=== PATIENT | female | born 1985 | race Caucasian/White ===

== ENCOUNTER 2016-11-30 12:50 | Emergency (ER) | payer MEDICAID | END 2016-11-30 14:45 | disposition home or self-care (01) | LOC: D.ER 12:50 | DX: J20.9 Acute bronchitis, unspecified (principal); J06.9 Acute upper respiratory infection, unspecified; G43.909 Migraine, unspecified, not intractable, without status migrainosus; F17.200 Nicotine dependence, unspecified, uncomplicated ==

== ENCOUNTER 2017-02-13 16:19 | Emergency (ER) | payer MEDICAID ==
[2017-02-13 16:59] LABS: BASOPHILS 0.1 % (0-2); EOSINOPHILS 1.1 % (0-7); HEMATOCRIT 43.2 % (36.0-48.0); HEMOGLOBIN 14.8 g/dL (12-16); IMMATURE GRANULOCYTES 0.3 % (0-5); LYMPHOCYTES 17.1 % (15-50); MCH 31.4 pg (26.0-34.0); MCHC 34.3 g/dL (31.0-37.0); MCV 91.5 fL (80.0-100.0); MEAN PLATELET VOLUME 9.7 fL (7.4-10.4); MONOCYTES 3.8 % (2-11); NEUTROPHILS 77.6 % (40-80); PLATELET COUNT 311 10x3/uL (130-400); RBC 4.72 10x6/uL (4.00-5.40); RDW 12.6 % (11.5-14.5); WBC 14.2 10x3/uL (4.8-10.8)
[2017-02-13 17:11] LABS: APPEARANCE CLEAR (CLEAR); COLOR YELLOW (YELLOW)
[2017-02-13 17:12] LABS: BACTERIA FEW /hpf (NONE SEEN); BILIRUBIN NEGATIVE (NEGATIVE); EPITHELIAL CELLS 0-5 /hpf (0-5); GLUCOSE NEGATIVE (NEGATIVE); KETONE NEGATIVE (NEGATIVE); LEUKOCYTE ESTERASE TRACE (NEGATIVE); NITRITE NEGATIVE (NEGATIVE); PROTEIN NEGATIVE (NEGATIVE); RED CELLS - URINE >50 /hpf (0-5); UROBILINOGEN NORMAL (NORMAL); WHITE CELLS - URINE 0-5 /hpf (0-5)
[2017-02-13 17:16] LABS: HCG SERUM NEGATIVE (NEGATIVE)
[2017-02-13 17:20] LABS: ALBUMIN 3.9 g/dL (3.4-5.0); ANION GAP 16.9 mmol/L (8-16); BILIRUBIN - TOTAL 0.29 mg/dL (0.2-1.3); CALCIUM 9.1 mg/dL (8.5-10.1); CARBON DIOXIDE 24.1 mmol/L (21.0-32.0); PROTEIN - SERUM 7.2 g/dL (6.4-8.2)
== END 2017-02-13 21:21 | disposition home or self-care (01) ==
LOC: D.ER 16:19
PROVIDERS: Emergency Medicine
DX: R10.9 Unspecified abdominal pain (principal); R11.2 Nausea with vomiting, unspecified; R55 Syncope and collapse; F17.200 Nicotine dependence, unspecified, uncomplicated

== ENCOUNTER 2017-04-05 15:14 | Emergency (ER) | payer MEDICAID | END 2017-04-05 17:50 | disposition home or self-care (01) | LOC: D.ER 15:14 | DX: S61.451A Open bite of right hand, initial encounter (principal); S51.851A Open bite of right forearm, initial encounter; W54.0XXA Bitten by dog, initial encounter; Y93.89 Activity, other specified; Y92.027 Garden or yard of mobile home as the place of occurrence of the external cause; S60.812A Abrasion of left wrist, initial encounter; S61.213A Laceration without foreign body of left middle finger without damage to nail, initial encounter ==

== ENCOUNTER 2017-04-07 10:27 | Day surgery (SDC) | payer MEDICAID ==
[2017-04-07 13:06] LABS: BASOPHILS 0.2 % (0-2); EOSINOPHILS 1.3 % (0-7); HEMOGLOBIN 15.8 g/dL (12-16); IMMATURE GRANULOCYTES 0.3 % (0-5); LYMPHOCYTES 21.8 % (15-50); MCH 31.3 pg (26.0-34.0); MCHC 34.3 g/dL (31.0-37.0); MCV 91.3 fL (80.0-100.0); MEAN PLATELET VOLUME 9.6 fL (7.4-10.4); MONOCYTES 5.2 % (2-11); NEUTROPHILS 71.2 % (40-80); PLATELET COUNT 348 10x3/uL (130-400); RBC 5.04 10x6/uL (4.00-5.40); RDW 12.3 % (11.5-14.5); WBC 13.8 10x3/uL (4.8-10.8)
[2017-04-07 13:19] LABS: ALBUMIN 4.5 g/dL (3.4-5.0); ANION GAP 15.4 mmol/L (8-16); BILIRUBIN - TOTAL 0.66 mg/dL (0.2-1.3); CALCIUM 9.9 mg/dL (8.5-10.1); CARBON DIOXIDE 27.5 mmol/L (21.0-32.0); HCG SERUM NEGATIVE (NEGATIVE); POTASSIUM - SERUM 3.9 mmol/L (3.5-5.1); PROTEIN - SERUM 8.7 g/dL (6.4-8.2)
[2017-04-07 15:05] VITALS: BP 107/66
--- NOTE | 2017-04-07 15:09 | NUR ---
PT REMAINED ON STRETCHER FOR PROCEDURE
--- NOTE | 2017-04-07 15:10 | NUR ---
RECEIVED TO ROOM 2210. FAMILY IN ROOM. SECOND FINGER TO LEFT HAND SLIGHTLY SWOLLEN BUT BLANCHES WELL. C/O SOME PAIN TO THIS FINGER. WILL MONITOR.
--- NOTE | 2017-04-07 15:30 | NUR ---
UP TO BR WITH FAMILYS ASSIST. VOIDED 300CC CLEAR YELLOW URINE. SKIN CARE PER SELF.
[2017-04-07 15:52] VITALS: BP 107/66; BMI 29.9
--- NOTE | 2017-04-07 16:16 | NUR ---
DRINKING WATER WITHOUT NAUSEA. DISCHARGED TO HOME AMBULATORY WITH FAMILY. DISCHARGE INSTRUCTIONS GIVEN BOTH VERBALLY AND WRITTEN. ALL QUESTIONS ANSWERED. PATIENT AND FAMILY VERBALIZED UNDERSTANDING OF SAME. NO NEW PRESCRIPTIONS NEEDS. ALL BELONGINGS WITH PATIENT.
--- NOTE | 2017-04-12 13:19 | OP ---
PATIENT NAME: MAGUE CASILLAS MEDICAL RECORD: [id number] :87 LOCATION:[facility] ADMISSION DATE: SURGEON: BARON BOUCHER MD DATE OF OPERATION: 04/07/2017 DATE OF OPERATION: 04/07/17 PREOPERATIVE DIAGNOSIS: Retained ring, left hand long finger. POSTOPERATIVE DIAGNOSIS: Retained ring, left hand long finger. PROCEDURE: Removal of ring under TIVA anesthesia. ANESTHESIA: TIVA. INDICATIONS: Ms. Casillas evidently had come in with a dog bite on this finger and the ring was not removed at the time of suturing, the dog bite closed. She returned back to the ER, where the ER had tried multiple attempts at removing the ring and could not. I was called in to have this done. Although, the [employer] was ready, we were able to get it off with a simple ring cutter. OPERATIVE SUMMARY IN DETAIL: After obtaining the appropriate preoperative orthopedic surgery consent as well as anesthetic consultation, evaluation and clearance, the patient was brought to the operating room and placed on the operating table in supine position. After general TIVA anesthesia was administered, the area about the hand was prepped and draped in a routine sterile fashion. A ring cutter was brought in and with usual force the ring was cut on both sides and removed. Immediate jewish and decreased swelling of the finger was noted. The patient was awakened and taken to recovery room in stable condition. TRANSINT:[id number] Voice Confirmation ID: [id number] DOCUMENT ID: [id number] BARON BOUCHER MD at 1319 CC: [id number] DICTATION DATE: 04/08/17 1016 [employer] SPECIALIST: 04/08/17 1150 [facility] 04/07/17 [id number] [place] [address]
== END 2017-04-07 16:18 | disposition home or self-care (01) ==
LOC: D.OPS 10:27 → D.ER 10:27 → D.MS 13:55 → EDSTATUS 14:00 → D.OPS 16:18
PROVIDERS: Physician Assistant
DX: S60.443A External constriction of left middle finger, initial encounter (principal); F17.200 Nicotine dependence, unspecified, uncomplicated; Z01.812 Encounter for preprocedural laboratory examination; W49.04XA Ring or other jewelry causing external constriction, initial encounter

== ENCOUNTER 2017-04-15 12:13 | Emergency (ER) | payer MEDICAID | END 2017-04-15 12:15 | disposition home or self-care (01) | LOC: D.ER 12:13 | DX: Z02.9 Encounter for administrative examinations, unspecified (principal) ==

== ENCOUNTER 2017-09-09 23:16 | Emergency (ER) | payer MEDICAID | END 2017-09-10 00:01 | disposition home or self-care (01) | LOC: D.ER 23:16 | DX: M54.5 Low back pain (principal); F17.200 Nicotine dependence, unspecified, uncomplicated ==

== ENCOUNTER 2017-10-05 06:16 | Emergency (ER) | payer MEDICAID ==
[2017-10-05 06:39] LABS: BASOPHILS 0.3 % (0-2); EOSINOPHILS 3.3 % (0-7); HEMATOCRIT 39.7 % (36.0-48.0); HEMOGLOBIN 13.6 g/dL (12-16); IMMATURE GRANULOCYTES 0.1 % (0-5); LYMPHOCYTES 37.3 % (15-50); MCH 31.3 pg (26.0-34.0); MCHC 34.3 g/dL (31.0-37.0); MCV 91.5 fL (80.0-100.0); MEAN PLATELET VOLUME 9.3 fL (7.4-10.4); MONOCYTES 4.3 % (2-11); NEUTROPHILS 54.7 % (40-80); PLATELET COUNT 281 10x3/uL (130-400); RBC 4.34 10x6/uL (4.00-5.40); RDW 12.6 % (11.5-14.5); WBC 10.3 10x3/uL (4.8-10.8)
[2017-10-05 06:55] LABS: ALBUMIN 3.5 g/dL (3.4-5.0); ALKALINE PHOSPHATASE 67 U/L (46-116); ALT (SGPT) 19 U/L (10-68); CALC OSMOLALITY 280 mosm/kg (275-300); CALCIUM 8.5 mg/dL (8.5-10.1); CARBON DIOXIDE 21.8 mmol/L (21.0-32.0); CHLORIDE - SERUM 105 mmol/L (98-107); CREATININE - SERUM 0.9 mg/dL (0.6-1.3); LIPASE 121 U/L (73-393); POTASSIUM - SERUM 3.6 mmol/L (3.5-5.1); PROTEIN - SERUM 6.9 g/dL (6.4-8.2); SODIUM 139 mmol/L (136-145); UREA NITROGEN 13 mg/dL (7-18); eGFR NON AFRICAN AMERICAN 77 mL/min (90-120)
[2017-10-05 06:56] LABS: GLUCOSE 149 mg/dL (74-106)
[2017-10-05 07:02] LABS: APPEARANCE HAZY (CLEAR); BILIRUBIN NEGATIVE (NEGATIVE); COLOR DK YELLOW (YELLOW); GLUCOSE NEGATIVE (NEGATIVE); KETONE NEGATIVE (NEGATIVE); NITRITE NEGATIVE (NEGATIVE); PROTEIN NEGATIVE (NEGATIVE); SPECIFIC GRAVITY 1.025 (1.005-1.020); UROBILINOGEN NORMAL (NORMAL)
[2017-10-05 07:03] LABS: BACTERIA MODERATE /hpf (NONE SEEN); MUCUS >1+ /lpf (NONE SEEN); RED CELLS - URINE OCC /hpf (0-5); WHITE CELLS - URINE 0-5 /hpf (0-5)
== END 2017-10-05 08:55 | disposition home or self-care (01) ==
LOC: D.ER 06:16
PROVIDERS: Emergency Medicine
DX: K29.00 Acute gastritis without bleeding (principal); F17.200 Nicotine dependence, unspecified, uncomplicated

== ENCOUNTER 2017-10-07 13:39 | Emergency (ER) | payer MEDICAID ==
[2017-10-07 14:29] LABS: BASOPHILS 0.3 % (0-2); EOSINOPHILS 2.6 % (0-7); HEMATOCRIT 39.6 % (36.0-48.0); HEMOGLOBIN 13.8 g/dL (12-16); IMMATURE GRANULOCYTES 0.3 % (0-5); LYMPHOCYTES 29.2 % (15-50); MCH 31.6 pg (26.0-34.0); MCHC 34.8 g/dL (31.0-37.0); MCV 90.6 fL (80.0-100.0); MEAN PLATELET VOLUME 9.4 fL (7.4-10.4); MONOCYTES 4.1 % (2-11); NEUTROPHILS 63.5 % (40-80); PLATELET COUNT 311 10x3/uL (130-400); RBC 4.37 10x6/uL (4.00-5.40); RDW 12.5 % (11.5-14.5); WBC 10.9 10x3/uL (4.8-10.8)
[2017-10-07 15:22] LABS: HCG SERUM NEGATIVE (NEGATIVE)
[2017-10-07 16:52] LABS: ALBUMIN 3.8 g/dL (3.4-5.0); ALKALINE PHOSPHATASE 70 U/L (46-116); ALT (SGPT) 19 U/L (10-68); CALC OSMOLALITY 279 mosm/kg (275-300); CALCIUM 9.3 mg/dL (8.5-10.1); CHLORIDE - SERUM 104 mmol/L (98-107); CREATININE - SERUM 0.9 mg/dL (0.6-1.3); GLUCOSE 121 mg/dL (74-106); POTASSIUM - SERUM 3.9 mmol/L (3.5-5.1); PROTEIN - SERUM 7.1 g/dL (6.4-8.2); SODIUM 141 mmol/L (136-145); UREA NITROGEN 8 mg/dL (7-18); eGFR NON AFRICAN AMERICAN 77 mL/min (90-120)
== END 2017-10-07 18:34 | disposition home or self-care (01) ==
LOC: D.ER 13:39
PROVIDERS: Family Medicine
DX: R10.2 Pelvic and perineal pain (principal); N83.201 Unspecified ovarian cyst, right side

== ENCOUNTER 2017-12-16 14:31 | Emergency (ER) | payer MEDICAID ==
[~2017-12-16] VITALS: Ht 167.6 cm; Wt 81.8 kg
[2017-12-16 15:13] VITALS: Ht 167.6 cm; Wt 81.8 kg
[2017-12-16 15:32] LABS: BASOPHILS 0.2 % (0-2); EOSINOPHILS 0.8 % (0-7); HEMATOCRIT 43.1 % (36.0-48.0); HEMOGLOBIN 14.6 g/dL (12-16); IMMATURE GRANULOCYTES 0.1 % (0-5); MCH 31.1 pg (26.0-34.0); MCHC 33.9 g/dL (31.0-37.0); MCV 91.7 fL (80.0-100.0); MEAN PLATELET VOLUME 9.6 fL (7.4-10.4); MONOCYTES 2.5 % (2-11); NEUTROPHILS 76.4 % (40-80); PLATELET COUNT 300 10x3/uL (130-400); RDW 12.6 % (11.5-14.5); WBC 10.8 10x3/uL (4.8-10.8)
[2017-12-16 15:56] LABS: ALKALINE PHOSPHATASE 84 U/L (46-116); ALT (SGPT) 16 U/L (10-68); BILIRUBIN - TOTAL 0.29 mg/dL (0.2-1.3); CALC OSMOLALITY 279 mosm/kg (275-300); CARBON DIOXIDE 26.9 mmol/L (21.0-32.0); CHLORIDE - SERUM 104 mmol/L (98-107); CREATININE - SERUM 0.9 mg/dL (0.6-1.3); GLUCOSE 121 mg/dL (74-106); POTASSIUM - SERUM 3.8 mmol/L (3.5-5.1); PROTEIN - SERUM 7.9 g/dL (6.4-8.2); SODIUM 141 mmol/L (136-145); UREA NITROGEN 8 mg/dL (7-18); eGFR NON AFRICAN AMERICAN 77 mL/min (90-120)
[2017-12-16 16:09] LABS: HCG URINE NEGATIVE (NEGATIVE)
[2017-12-16 16:13] LABS: APPEARANCE CLEAR (CLEAR); BILIRUBIN NEGATIVE (NEGATIVE); COLOR DK YELLOW (YELLOW); GLUCOSE NEGATIVE (NEGATIVE); KETONE NEGATIVE (NEGATIVE); NITRITE NEGATIVE (NEGATIVE); PROTEIN NEGATIVE (NEGATIVE); SPECIFIC GRAVITY 1.025 (1.005-1.020); UROBILINOGEN NORMAL (NORMAL)
[2017-12-16 16:14] LABS: BACTERIA FEW /hpf (NONE SEEN); EPITHELIAL CELLS 0-5 /hpf (0-5); MUCUS <1+ /lpf (NONE SEEN); WHITE CELLS - URINE 0-5 /hpf (0-5)
[2017-12-16] MEDS ORDERED: ROBAXIN500 MG PO (16:22)
[2017-12-16 16:30] VITALS: BP 110/67
== END 2017-12-16 16:30 | disposition home or self-care (01) ==
LOC: D.ER 14:31
PROVIDERS: Family Medicine
DX: N83.209 Unspecified ovarian cyst, unspecified side (principal)

== ENCOUNTER 2018-04-15 11:47 | Emergency (ER) | payer MEDICAID ==
[~2018-04-15] VITALS: Ht 167.6 cm; Wt 81.8 kg
[~2018-04-15 11:47] MED LIST: ROBAXIN500 MG PO
[2018-04-15 11:54] VITALS: Ht 167.6 cm; Wt 81.8 kg
[2018-04-15 12:16] LABS: BASOPHILS 0.2 % (0-2); EOSINOPHILS 1.8 % (0-7); HEMOGLOBIN 14.2 g/dL (12-16); IMMATURE GRANULOCYTES 0.3 % (0-5); LYMPHOCYTES 21.4 % (15-50); MCH 31.2 pg (26.0-34.0); MCHC 34.6 g/dL (31.0-37.0); MCV 90.1 fL (80.0-100.0); MEAN PLATELET VOLUME 9.5 fL (7.4-10.4); MONOCYTES 4.9 % (2-11); NEUTROPHILS 71.4 % (40-80); PLATELET COUNT 305 10x3/uL (130-400); RBC 4.55 10x6/uL (4.00-5.40); RDW 12.6 % (11.5-14.5); WBC 11.1 10x3/uL (4.8-10.8)
[2018-04-15 12:31] LABS: ALKALINE PHOSPHATASE 78 U/L (46-116); ALT (SGPT) 19 U/L (10-68); AMYLASE - SERUM 59 U/L (25-115); BILIRUBIN - TOTAL 0.39 mg/dL (0.2-1.3); CALC OSMOLALITY 275 mosm/kg (275-300); CALCIUM 9.2 mg/dL (8.5-10.1); CARBON DIOXIDE 19.5 mmol/L (21.0-32.0); CHLORIDE - SERUM 104 mmol/L (98-107); CREATININE - SERUM 0.9 mg/dL (0.6-1.3); GLUCOSE 132 mg/dL (74-106); LIPASE 104 U/L (73-393); POTASSIUM - SERUM 3.8 mmol/L (3.5-5.1); PROTEIN - SERUM 7.6 g/dL (6.4-8.2); SODIUM 138 mmol/L (136-145); UREA NITROGEN 6 mg/dL (7-18); eGFR NON AFRICAN AMERICAN 77 mL/min (90-120)
[2018-04-15 13:19] LABS: HCG URINE NEGATIVE (NEGATIVE)
[2018-04-15 13:21] LABS: APPEARANCE HAZY (CLEAR); BILIRUBIN NEGATIVE (NEGATIVE); COLOR YELLOW (YELLOW); EPITHELIAL CELLS 0-5 /hpf (0-5); GLUCOSE NEGATIVE (NEGATIVE); KETONE NEGATIVE (NEGATIVE); NITRITE NEGATIVE (NEGATIVE); PROTEIN TRACE mg/dL (NEGATIVE); UROBILINOGEN NORMAL (NORMAL); WHITE CELLS - URINE NSEEN /hpf (0-5)
[2018-04-15] MEDS ORDERED: NAPROSYN500 MG PO (15:23)
[2018-04-15] MEDS ORDERED: ZOFRAN4 MG PO (15:23)
[2018-04-15 15:45] VITALS: BP 126/74
== END 2018-04-15 15:45 | disposition home or self-care (01) ==
LOC: D.ER 11:47
PROVIDERS: Family Medicine
DX: K52.9 Noninfective gastroenteritis and colitis, unspecified (principal); F17.200 Nicotine dependence, unspecified, uncomplicated

== ENCOUNTER 2018-06-22 13:51 | Emergency (ER) | payer MEDICAID ==
[~2018-06-22] VITALS: Ht 167.6 cm; Wt 86.4 kg
[~2018-06-22 13:51] MED LIST changes: +NAPROSYN500 MG PO; +ZOFRAN4 MG PO
[2018-06-22 14:02] VITALS: Ht 167.6 cm; Wt 86.4 kg
[2018-06-22] MEDS ORDERED: NORCO 10-325 TA1 TAB PO (16:13)
[2018-06-22 16:26] VITALS: BP 119/71
== END 2018-06-22 16:26 | disposition home or self-care (01) ==
LOC: D.ER 13:51
DX: S92.512A Displaced fracture of proximal phalanx of left lesser toe(s), initial encounter for closed fracture (principal); X58.XXXA Exposure to other specified factors, initial encounter; Y93.89 Activity, other specified; Y92.89 Other specified places as the place of occurrence of the external cause

== ENCOUNTER 2018-07-25 21:21 | Emergency (ER) | payer MEDICAID ==
[~2018-07-25] VITALS: Ht 167.6 cm; Wt 86.4 kg
[~2018-07-25 21:21] MED LIST changes: +NORCO 10-325 TA1 TAB PO
[2018-07-25 21:30] VITALS: Ht 167.6 cm; Wt 86.4 kg
[2018-07-25 23:24] VITALS: BP 127/79
== END 2018-07-25 23:25 | disposition home or self-care (01) ==
LOC: D.ER 21:21
DX: S00.93XA Contusion of unspecified part of head, initial encounter (principal); W20.8XXA Other cause of strike by thrown, projected or falling object, initial encounter; Y93.89 Activity, other specified; Y92.89 Other specified places as the place of occurrence of the external cause; R11.10 Vomiting, unspecified; F17.200 Nicotine dependence, unspecified, uncomplicated

== ENCOUNTER 2018-10-20 11:00 | Emergency (ER) | payer MEDICAID ==
[~2018-10-20] VITALS: Ht 167.6 cm; Wt 87.3 kg
[2018-10-20 11:13] VITALS: Ht 167.6 cm; Wt 87.3 kg
[2018-10-20 11:41] LABS: HCG URINE NEGATIVE (NEGATIVE)
[2018-10-20 11:42] LABS: APPEARANCE CLEAR (CLEAR); BILIRUBIN NEGATIVE (NEGATIVE); COLOR YELLOW (YELLOW); GLUCOSE NEGATIVE (NEGATIVE); KETONE NEGATIVE (NEGATIVE); NITRITE NEGATIVE (NEGATIVE); PROTEIN NEGATIVE (NEGATIVE); SPECIFIC GRAVITY 1.015 (1.005-1.020); UROBILINOGEN NORMAL (NORMAL)
[2018-10-20 11:46] LABS: BACTERIA FEW /hpf (NONE SEEN); EPITHELIAL CELLS 0-5 /hpf (0-5); RED CELLS - URINE 0-5 /hpf (0-5); WHITE CELLS - URINE 0-5 /hpf (0-5)
[2018-10-20 12:20] LABS: BASOPHILS 0.1 % (0-2); EOSINOPHILS 1.3 % (0-7); HEMATOCRIT 40.1 % (36.0-48.0); HEMOGLOBIN 13.9 g/dL (12-16); IMMATURE GRANULOCYTES 0.2 % (0-5); LYMPHOCYTES 16.4 % (15-50); MCH 31.4 pg (26.0-34.0); MCHC 34.7 g/dL (31.0-37.0); MCV 90.7 fL (80.0-100.0); MEAN PLATELET VOLUME 9.5 fL (7.4-10.4); PLATELET COUNT 279 10x3/uL (130-400); RBC 4.42 10x6/uL (4.00-5.40); RDW 12.6 % (11.5-14.5); WBC 12.9 10x3/uL (4.8-10.8)
[2018-10-20 12:37] LABS: ALBUMIN 3.9 g/dL (3.4-5.0); ALKALINE PHOSPHATASE 74 U/L (46-116); ALT (SGPT) 18 U/L (10-68); BILIRUBIN - TOTAL 0.65 mg/dL (0.2-1.3); CALC OSMOLALITY 279 mosm/kg (275-300); CALCIUM 8.9 mg/dL (8.5-10.1); CARBON DIOXIDE 24.9 mmol/L (21.0-32.0); CHLORIDE - SERUM 105 mmol/L (98-107); CREATININE - SERUM 0.9 mg/dL (0.6-1.3); GLUCOSE 108 mg/dL (74-106); POTASSIUM - SERUM 3.6 mmol/L (3.5-5.1); PROTEIN - SERUM 7.5 g/dL (6.4-8.2); SODIUM 141 mmol/L (136-145); UREA NITROGEN 8 mg/dL (7-18); eGFR NON AFRICAN AMERICAN 77 mL/min (90-120)
[2018-10-20] MEDS ORDERED: TORADOL10 MG PO (13:54)
[2018-10-20 14:00] VITALS: BP 132/74
== END 2018-10-20 14:01 | disposition home or self-care (01) ==
LOC: D.ER 11:00
PROVIDERS: Family Medicine
DX: R10.31 Right lower quadrant pain (principal); M54.5 Low back pain

== ENCOUNTER 2019-02-21 02:07 | Emergency (ER) | payer MEDICAID ==
[~2019-02-21] VITALS: Ht 167.6 cm; Wt 81.8 kg
[~2019-02-21 02:07] MED LIST changes: +TORADOL10 MG PO
[2019-02-21 02:11] VITALS: Ht 167.6 cm; Wt 81.8 kg
[2019-02-21] MEDS ORDERED: AMBIEN10 MG PO (02:12)
[2019-02-21 02:41] LABS: BASOPHILS 0.2 % (0-2); EOSINOPHILS 2.6 % (0-7); HEMATOCRIT 40.9 % (36.0-48.0); HEMOGLOBIN 14.4 g/dL (12-16); IMMATURE GRANULOCYTES 0.2 % (0-5); LYMPHOCYTES 41.7 % (15-50); MCH 31.4 pg (26.0-34.0); MCHC 35.2 g/dL (31.0-37.0); MCV 89.3 fL (80.0-100.0); MEAN PLATELET VOLUME 9.5 fL (7.4-10.4); MONOCYTES 5.9 % (2-11); NEUTROPHILS 49.4 % (40-80); PLATELET COUNT 333 10x3/uL (130-400); RBC 4.58 10x6/uL (4.00-5.40); WBC 12.5 10x3/uL (4.8-10.8)
[2019-02-21 02:45] LABS: APTT 33.1 SECONDS (22.8-39.4); INR 1.02 (0.85-1.17); PROTIME 12.9 SECONDS (11.6-15.0)
[2019-02-21 02:50] LABS: ALBUMIN 3.8 g/dL (3.4-5.0); ALKALINE PHOSPHATASE 71 U/L (46-116); ALT (SGPT) 17 U/L (10-68); CALC OSMOLALITY 282 mosm/kg (275-300); CALCIUM 8.5 mg/dL (8.5-10.1); CARBON DIOXIDE 25.1 mmol/L (21.0-32.0); CHLORIDE - SERUM 107 mmol/L (98-107); CREATININE - SERUM 0.8 mg/dL (0.6-1.3); GLUCOSE 95 mg/dL (74-106); POTASSIUM - SERUM 4.1 mmol/L (3.5-5.1); SODIUM 142 mmol/L (136-145); UREA NITROGEN 12 mg/dL (7-18); eGFR NON AFRICAN AMERICAN 88 mL/min (90-120)
[2019-02-21 03:00] LABS: CKMB 0.6 U/L (0.0-3.6); CREATINE KINASE 102 UL (21-215); MAGNESIUM - SERUM 1.9 mg/dL (1.8-2.4)
[2019-02-21 03:01] LABS: TROPONIN-I < 0.017 ng/mL (0.000-0.060)
[2019-02-21] MEDS ORDERED: CYCLOBENZAPRINE5 MG PO (05:03)
[2019-02-21 05:41] VITALS: BP 98/70
== END 2019-02-21 05:29 | disposition home or self-care (01) ==
LOC: D.ER 02:07
PROVIDERS: Family Medicine
DX: R07.9 Chest pain, unspecified (principal); I10 Essential (primary) hypertension

== ENCOUNTER 2020-01-17 22:53 | Emergency (ER) | payer MEDICAID ==
[~2020-01-17] VITALS: Ht 167.6 cm; Wt 81.8 kg
[~2020-01-17 22:53] MED LIST changes: +AMBIEN10 MG PO; +CYCLOBENZAPRINE5 MG PO
[2020-01-17 22:58] VITALS: Ht 167.6 cm; Wt 81.8 kg
[2020-01-18] MEDS ORDERED: MIRALAX17 GM PO (01:22)
[2020-01-18] MEDS ORDERED: TYLENOL #4 W/CO1 TAB PO (01:22)
[2020-01-18 01:52] VITALS: BP 122/77
== END 2020-01-18 01:52 | disposition home or self-care (01) ==
LOC: D.ER 22:53
DX: R10.9 Unspecified abdominal pain (principal); I10 Essential (primary) hypertension; Z72.0 Tobacco use

== ENCOUNTER 2020-01-24 09:16 | Emergency (ER) | payer MEDICAID ==
[~2020-01-24] VITALS: Ht 167.6 cm; Wt 81.8 kg
[~2020-01-24 09:16] MED LIST changes: +MIRALAX17 GM PO; +TYLENOL #4 W/CO1 TAB PO
[2020-01-24 09:22] VITALS: Ht 167.6 cm; Wt 81.8 kg
[2020-01-24 09:39] LABS: BASOPHILS 0.1 % (0-2); EOSINOPHILS 2.3 % (0-7); HEMATOCRIT 42.1 % (36.0-48.0); HEMOGLOBIN 14.1 g/dL (12-16); IMMATURE GRANULOCYTES 0.1 % (0-5); LYMPHOCYTES 16.1 % (15-50); MCH 30.8 pg (26.0-34.0); MCHC 33.5 g/dL (31.0-37.0); MCV 91.9 fL (80.0-100.0); MEAN PLATELET VOLUME 8.9 fL (7.4-10.4); MONOCYTES 5.8 % (2-11); NEUTROPHILS 75.6 % (40-80); PLATELET COUNT 295 10x3/uL (130-400); RBC 4.58 10x6/uL (4.00-5.40); RDW 13.3 % (11.5-14.5); WBC 15.1 10x3/uL (4.8-10.8)
[2020-01-24 10:16] LABS: HCG URINE NEGATIVE (NEGATIVE)
[2020-01-24 10:18] LABS: CALC OSMOLALITY 276 mosm/kg (275-300); CALCIUM 9.1 mg/dL (8.5-10.1); CARBON DIOXIDE 26.4 mmol/L (21.0-32.0); CHLORIDE - SERUM 103 mmol/L (98-107); CREATININE - SERUM 0.7 mg/dL (0.6-1.3); GLUCOSE 106 mg/dL (74-106); POTASSIUM - SERUM 4.7 mmol/L (3.5-5.1); SODIUM 139 mmol/L (136-145); UREA NITROGEN 10 mg/dL (7-18); eGFR NON AFRICAN AMERICAN > 90 mL/min (90-120)
[2020-01-24 10:25] LABS: BILIRUBIN NEGATIVE (NEGATIVE); GLUCOSE NEGATIVE (NEGATIVE); KETONE NEGATIVE (NEGATIVE); NITRITE NEGATIVE (NEGATIVE); UROBILINOGEN NORMAL (NORMAL)
[2020-01-24 10:26] LABS: ALBUMIN 3.9 g/dL (3.4-5.0); ALKALINE PHOSPHATASE 82 U/L (30-120); ALT (SGPT) 19 U/L (10-68); AMYLASE - SERUM 45 U/L (25-115); BILIRUBIN - TOTAL 0.35 mg/dL (0.2-1.3); LIPASE 65 U/L (73-393); PROTEIN - SERUM 7.2 g/dL (6.4-8.2); RED CELLS - URINE OCC /hpf (0-5); WHITE CELLS - URINE OCC /hpf (NEGATIVE)
[2020-01-24 10:29] LABS: TROPONIN-I < 0.017 ng/mL (0.000-0.060)
[2020-01-24] MEDS ORDERED: KEFLEX500 MG PO (11:48)
[2020-01-24] MEDS ORDERED: ZOFRAN ODT4 MG/UDTAB PO (11:48)
[2020-01-24] MEDS ORDERED: CYCLOBENZAPRINE10 MG PO (11:48)
[2020-01-24] MEDS ORDERED: MACROBID100 MG PO (11:48)
[2020-01-24] MEDS ORDERED: ACETAMINOPHEN500 M1 PO (11:48)
[2020-01-24] MEDS ORDERED: IBUPROFEN800 MG PO (11:48)
[2020-01-24 19:20] VITALS: BP 134/81
== END 2020-01-24 12:40 | disposition home or self-care (01) ==
LOC: D.ER 09:16
PROVIDERS: Family Medicine
DX: R10.31 Right lower quadrant pain (principal); N39.0 Urinary tract infection, site not specified; D72.829 Elevated white blood cell count, unspecified; I10 Essential (primary) hypertension